=== PATIENT | male | born 1995 | race Caucasian/White ===

== ENCOUNTER 2017-02-11 09:06 | Emergency (ER) | payer OTHER ==
[~2017-02-11] VITALS: Ht 175.3 cm; Wt 80.7 kg
[2017-02-11 09:10] VITALS: TEMP 37.6; Ht 175.3 cm; Wt 80.7 kg
[2017-02-11] MEDS ORDERED: DEXT1CAP9 PO (09:22)
[2017-02-11] MEDS ORDERED: AMOX875T3 PO (10:46)
[2017-02-11 11:20] VITALS: BP 122/73; PULSE 78; O2SAT 98
[2017-02-11 11:46] LABS: INFLUENZA A PCR Neg for Influ A (NEG); INFLUENZA B PCR Neg for Influ B (NEG)
--- NOTE | 2017-02-12 06:49 | EMERGENCY ROOM VISIT NOTE ---
ED Visit Note First contact with patient: 09:25 Chief Complaint: I'm having a sore throat, fever and body aches. History of Present Illness: Mr. Best is a 21-year-old male who ambulates into the ED complaining of throat pain, fever and body aches. Patient reports his symptoms started just over 2 days ago when he awoke from sleep with a sore throat. Since that time his pain has been constant and gradually increasing in intensity. Then over the last 2 days he develop fevers and body aches. He reports he was seen at a local urgent care center and a rapid strep screen was performed and was negative with a culture pending and a Monospot test was performed and was negative. He reports he was referred to the ED for possible influenza testing because of his fevers and body aches. Currently he describes his throat sensation as a constant achy sensation that becomes mildly sharp with swallowing. He rates his discomfort 6/10. He rates his joint aches at 2/10. He has not identified any other aggravating factors related to his throat pain except for swallowing. He reports he has been using DayQuil during the day and NyQuil at night for his symptoms without relief. He denies skin eruptions, skin color changes, headache, dizziness, lightheadedness, ear drainage, hearing changes, painful talking, drooling, inability to swallow, voice changes, neck pain/stiffness, cough, wheezing, shortness of breath, nausea, vomiting. Review of Systems: As noted above in history of present illness. 8 body systems were reviewed and found to be negative as noted above. Past Medical History: Asthma, bronchitis, status post wisdom teeth extraction. Current Medications: As previously noted. Allergies to Medications: Zithromax. Social History: Patient is currently University student; he feels safe in his home environment; he denies tobacco use and admits to alcohol use. Physical Examination: Vital Signs: Date Time Temp Pulse Resp B/P (MAP) Pulse Ox O2 Delivery O2 Flow Rate FiO2 02/11/17 11:20 78 18 122/73 98 02/11/17 09:10 37.6 104 20 116/69 96 Room Air GENERAL: 21-year-old male in mild distress due to pain, nontoxic-appearing, afebrile and hemodynamically stable. NEUROLOGICAL: Awake, alert and oriented to person, place and time. Answering questions appropriately and following commands. SKIN: Warm, dry and pink. No soft tissue eruptions or trauma noted. HEENT: Atraumatic and normocephalic. No erythema or tenderness over the frontomaxillary sinuses. External ears are nontender. Tympanic membranes were pearly bruno with normal light reflex. PERRLA. Sclera white and conjunctiva pink without drainage. No drainage from naris. Airway is patent. Oral cavity moist and pink. Uvula is midline and no abscesses are seen. Moderate tonsillar hypertrophy. The tonsils are also erythematous with white patches of exudative material. Speech normal. No laryngeal tenderness. Positive bilateral cervical lymphadenopathy. Trachea midline. No jugular venous distention. BACK: No tenderness over the bony cervical spine. No nuchal rigidity or meningismus. THORAX: Lungs sounds are clear to auscultation and equal bilaterally with symmetrical chest wall. No wheezing, rales or rhonchi. ED Course: Patient is assessed as noted above. Patient's medication list was reviewed. Patient was educated about today's findings and instructed on his treatment plan ; he verbalizes understanding and agreement with this plan. Clinical Impression: Acute tonsillitis. Disposition: Patient discharged home in stable condition; prior to departure he was reassessed and subjectively reported he was feeling better. Plan: Patient was encouraged to alternate ibuprofen and acetaminophen every 3 hours for pain and fever. Patient was prescribed amoxicillin 875 mg 3 times a day for 10 days. Patient was encouraged to stay well-hydrated and consider using a liquid/ mechanical soft diet until resolution of throat discomfort. Patient was encouraged to follow-up at [facility] for recheck. Patient was encouraged return ED for worsening pain, worsening fevers, inability to swallow, vomiting, headaches, neck pain/stiffness, inability to swallow or any new/concerning symptoms.
== END 2017-02-11 11:18 | disposition home or self-care (01) ==
LOC: C.EDB 09:10
DX: J03.90 Acute tonsillitis, unspecified (principal); J45.909 Unspecified asthma, uncomplicated

== ENCOUNTER → 2017-02-28 | Outpatient (CLI) | payer OTHER ==
[~2017-02-28] MED LIST: DEXT1CAP9 PO
[2017-02-28 13:01] LABS: HEMATOCRIT 43.2 % (42-52); MEAN CELL VOLUME 83.9 fL (80-100); MEAN CORPUSCULAR HEMOGLOBIN 28.3 pg (25-34); MEAN CORPUSCULAR HGB CONC 33.8 g/dl (32-36); MEAN PLATELET VOLUME 9.5 fL (7.4-10.4); PLATELET COUNT 339 K/uL (130-400); RED BLOOD COUNT 5.15 M/uL (4.7-6.1); WHITE BLOOD COUNT 7.74 K/uL (4.8-10.8)
[2017-02-28 13:28] LABS: ALT/SGPT 40 U/L (12-78); BLOOD UREA NITROGEN 13 mg/dl (7-18); BUN/CREATININE RATIO 13.2 (10-20); CALCIUM 9.6 mg/dl (8.5-10.1); CARBON DIOXIDE 28 mmol/L (21-32); CHLORIDE 101 mmol/L (98-107); CHOLESTEROL 125 mg/dl (0-200); CREATININE 0.95 mg/dl (0.60-1.40); GLUCOSE 96 mg/dl (70-99); POTASSIUM 3.7 mmol/L (3.5-5.1); SODIUM 137 mmol/L (136-145)
[2017-02-28 13:31] LABS: ALB/GLOB RATIO 0.9 (0.9-2); ALKALINE PHOSPHATASE 70 U/L (45-117); AST/SGOT 19 U/L (15-37); CHOLESTEROL/HDL RATIO 2.8; HDL CHOLESTEROL 45 mg/dl; LDL CHOLESTEROL CALCULATED 67 mg/dl; TRIGLYCERIDES 65 mg/dl (0-150); VERY LOW DENSITY LIPOPROT CALC 13 mg/dl
== END | disposition home or self-care (01) ==
LOC: C.LABBC 10:49
PROVIDERS: ATTEND Internal Medicine
DX: Z00.00 Encounter for general adult medical examination without abnormal findings (principal)